=== PATIENT | male | born 1995 | race Caucasian/White ===

== ENCOUNTER 2024-11-16 20:53 | Outpatient (OUT) | payer BC, SELFPAY | END 2024-11-16 20:54 | disposition home or self-care (01) | PROVIDERS: PCP Family Medicine; Visit Provider Family Medicine | DX: G47.33 Obstructive sleep apnea (adult) (pediatric) (principal); F51.01 Primary insomnia | CPT/HCPCS: 95810 ==

== ENCOUNTER 2025-01-04 20:57 | Outpatient (OUT) | payer BC, SELFPAY ==
--- OUTSIDE RECORDS SUMMARY | 2024-11-24 11:30 | XMS_ITS ---
Author Organization [facility] in [place] Address [address] [place] [address] Care Team Providers Care Mothers Helper Name Role Phone RobertOsbaldo Primary Care Provider [phone] Sujata Goodson [phone] REASON FOR VISIT strep throat Encounters Encounter Location Date Provider Diagnosis [address] [address] 11/24/2024 Sujata Goodson Plan Of Treatment Next Appt Details Provider Name:Osbaldo Jones, 11:30:00 AM, [address] [place] [address], [phone], Progress Notes * Fei VELAZQUEZOB:1995 (29 yo M)Acc No.[id number]:11/24/2024 UNLOCKED PROGRESS NOTE Progress Note Patient: César FREEMAN :?Sujata Goodson ([facility]), CNPDOB:1995 ???Age:29 Y???Sex:MaleDate:11/24/2024Phone:[phone]:[address] [phone]:Osbaldo Laguerre Avelinothad Subjective: * Chief Complaints: * 1 . Strep throat. * Medical History: Objective: * Vitals: Assessment: Plan: * Treatment: * * Electronic signature of Sujata Goodson NP, PERFORMANCE TEST [email or web address].[email or web address] on 01/04/2025 at 09:02 PM ESTSign off status: PendingVisit Status:?CANCPHONE (Cancelled Phone) * Provider: Ramiro Goodson ([facility]), CUSTOMIZER Date: Generated for Printing/Faxing/eTransmitting on:?01/04/2025 09:02 PM EST
--- OUTSIDE RECORDS SUMMARY | 2025-01-04 21:02 | XMS_ITS | Patient Health Record ---
Author Organization [facility] in [place] Address [address] [place] [address] Care Team Providers Care Sales Planning Analyst Name Role Phone Osbaldo Jones Primary Care Provider Sujata Goodson [phone] Allergies Allergen (clinical drug ingredient) Drug/Non Drug Allergy documented on EMR Reaction Allergy Type Onset Date Status PenicillinUnknownDrug AllergyActive Reason For Referral Reason vasectomy Diagnosis 1 Well adult (Z00.00) Referral Organization [facility] Referring Provider First Name Osbaldo Referring Provider Last Name Robert Referring Provider Speciality [facility] Referred Provider Ervin Longoria Referred Provider Specialty Urology Referral Priority Routine Medications Medication SIG (Take, Route, Frequency, Duration) Notes Start Date End Date Status Lisinopril 20 MG 1 tablet Orally Once a day; Dur ation: 30 day(s) 12/14/2022ctivePristiq 100 MG1 tablet Orally Once a day; Duration: 30 days 06/29/2022ctiveamLODIPine Besylate 5 MG1 tablet Orally Once a day; Duration: 30 daysActive Social History Tobacco Use: Social History Observation Description Date Details (start date - stop date) Former Smoker 02/18/2001 - 10/19/2022 Tobacco Use/Smoking Question Answer Notes Patient is a former smoker When did you start smoking?02/18/2001When did you stop smoking?10/19/2022 Additional Findings: Tobacco Nli-TnvvEq-rqstu cigarette smoker (1-9/day)Alcohol Screen (Audit-C) Question Answer Notes Did you have a drink containing alcohol in the p ast year? Yes How often did you have 6 or more drinks on one occasion in the past year?Monthly or less (1 point)How many drinks did you have on a typical day when you were drinking in the past year?1 or 2 drinks (0 point)How often did you have a drink containing alcohol in the past year?Less than monthly (1 point)Points2 InterpretationNegativeTobacco use other than smoking: Question Answer Notes Are you an other tobacco user? used to vape as wellAUDIT-C (Standard) Question Answer Notes Did you have a drink containing alcohol in the p ast year? No Fggqcp4MiarrvoqmlmfvzOlopyyme Problems Problem Type SNOMED Code ICD Code Onset Dates Problem Status W/U Status Risk Notes Problem Major depression, si ngle episode (37280921) Major depressive disorder, single episode, unspecified (F32.9) ActiveconfirmedProblemAnxiety disorder (219936229)Anxiety disorder, unspecified (F41.9)ActiveconfirmedProblemInsomnia (442838712)Insomnia, unspecified (G47.00) ActiveconfirmedProblemAcne vulgaris (83464812)Acne vulgaris (L70.0)Active confirmedProblemHypertension (49323419)Hypertension (I10)ActiveconfirmedProblem Insomnia (691652375)Insomnia (G47.00)ActiveconfirmedProblemSerous otitis media (87945671)Serous otitis media (H65.90)ActiveconfirmedProblemWell adult (721153895)Well adult (Z00.00)ActiveconfirmedProblemTension headache (033612241) Tension headache (G44.209)ActiveconfirmedProblemSprain of shoulder rotator cuff (disorder) (407722301671)Rotator cuff (capsule) sprain (S43.429A)Activeconfirmed ProblemExposure to sexually transmissible disorder (721160526)Exposure to venereal disease (Z20.2)ActiveconfirmedProblemLow back pain (735399454)Low back pain, unspecified (M54.50)Activeconfirmed Vital Signs Temperature 98.0 degrees Fahrenheit 01/30/2024 Blood pressure pdkpkovpu58 mm Hg09/30/20240617Omhkwv11 in09/30/2024lood pressure ntmguilj737 mm Hg09/30/20248877Vqxawj270.0 lbs09/30/2024BMI33.37 kg/m209/30/2024 Procedures Procedure Date Ordered Date Performed Result Body Sit e Sleep study - Diagnostic Polysonogram 01/24/2024 N/ASleep study - Diagnostic Lzqctxrswumn93/13/2025N/A Encounters Encounter Location Date Provider Diagnosis [facility] [address] [place] [address] 01/24/2024 Osbaldo Hoy Acute bronchitis, unspecified organism J20.9 and Snoring R06.83 [address] [place] [address] 01/30/2024 Osbaldo Hoy Serous otitis media H65.90 [place] [facility] [address] [place] [address] 09/30/2024 Osbaldo Hoy Well adult Z00.00 an d Snoring R06.83 [facility] [address] [place] [address] 01/27/2024 Osbaldo Hoy [facility] [place] [address] [facility] [place] [address]/17/2025Doug Hoy Assessments Encounter Date Diagnosis (ICD Code) Assessment Notes Treatment Notes Treatment Clinical Notes Section Notes 01/24/2024 Snoring (ICD-10 - R06.83) 4Acute bronchitis, unspecified organism (ICD-10 - J20.9)Rest and drink more liquids, especially water. You may use a humidifier or vaporizer to help keep the drainage moist. Nofu-fco-moepeie Nasal Saline may help the stuffy and runny nose. Use Ibuprofen and or Tylenol as needed for fever, chills, body aches or pain. Children 5 years old should not be given aigb-ggt-huymtzy cough and cold medications such as guaifenesin and dextromethorphan. If you're over age 5, you may try wxte-nle-lapuprg cold medications such as guaifenesin and dextromethorphan, or multi-symptom cold reliever such as Dayquil to help reduce the symptoms. Antibiotics have been prescribed. You should take these until completed and follow the directions. Antibiotics can sometimescause upset stomach, and in rare cases, serious allergic reactions or serious gastrointestinal problems. If you start having severe abdominal pain, severe vomiting, or bloody diarrhea, you should be reevaluated by your physician or urgent care immediately. Follow up with your Primary Care Provider or return to clinic if symptoms do not improve within 3-5 days. If you develop severe symptoms such as shortness of breath, repeated vomiting, coughing up blood, or chest pain you should go to the emergency room or call [phone] otitis media (ICD-10 - H65.90)09/30/2024Snoring (ICD-10 - R06.83)09/30/2024Well adult (ICD-10 - Z00.00) Plan Of Treatment Pending Test Test Name Order Date CMP (COMPLETE METABOLIC PANEL) 3 HEMOGLOBIN A1C (GLYCO) 06/29/2022 HEMOGLOBIN A1C (GLYCO) 09/30/2024 INSULIN, TOTAL 09/30/2024 IRON, TOTAL 06/29/2022 LIPID PANEL (CHOL/TRIG/HDL/LDL) 06/30/19 23 LIPID PANEL (CHOL/TRIG/HDL/LDL) 10/01/19 25 CBC WITH DIFF 06/29/2022 Sleep study - Diagnostic Polysonogram Sleep study - Diagnostic Polysonogram Insulin Level 06/29/2022 THYROID PANEL (T4/TSH/FREE T3) 3 THYROID PANEL (T4/TSH/FREE T3) 5 CMP (COMP MET KING) w/eGFR CKD-EPI 2024 CBC WITH DIFF 09/30/2024 Next Appt Details Provider Name:Osbaldo Jones, 11:30:00 AM, [address] [facility], [place], [address], Insurance Providers Payer Name Payer Address Payer Phone Subscriber Number Group Number Insured Name Patient Relationship to Insured Coverage Start Date Coverage End Date JOHANNA GAINES [address] [place] [address] [id number] César Grayson Self - patient is the insured 4 Medications Administered Medication Instructions Date of Administration Dosage Notes Kenalog-40 4120 fx103Tebskkxpp Cgdwodlaayxd06/28/923707 mg60 Medical (General) History Medical History History ICD Code Strain of muscle, fascia and tendon of l eft hip, initial encounter S76.012A Contusion of right lower leg, initial en counter S80.11XA RB (rectal bleeding) K62.5 Ear pain, right H92.01 Contact dermatitis L25.9 Snoring R06.83 Acute recurrent frontal sinusitis J01.11 Exposure to venereal disease Z20.2 Sprain of medial collateral ligament of left knee, initial encounter S83.412A Streptococcal pharyngitis J02.0 Fatigue R53.83 Well adult Z00.00 Serous otitis media H65.90 Pain, joint, hand M79.643 Migraine G43.909 Low back pain, unspecified M54.50 Gastroenteritis K52.9 Insomnia G47.00 Infection of toenail L03.039 Tension headache G44.209 Pruritus L29.9 Back muscle spasm M62.830 Urinary tract infection N39.0 Bronchitis J40 Sinusitis J32.9 Gastritis K29.70 Acne vulgaris L70.0 Nevus D22.9 Shoulder pain M25.519 Surgical History Surgery Date(Month/Year) denies Hospitalization History Reason Date(Month/Year) denies
== END 2025-01-04 20:58 | disposition home or self-care (01) ==
PROVIDERS: PCP Family Medicine; Visit Provider Family Medicine
DX: G47.33 Obstructive sleep apnea (adult) (pediatric) (principal); F51.01 Primary insomnia
CPT/HCPCS: 95811